=== PATIENT | female | born 1990 | race Caucasian/White ===

== ENCOUNTER 2023-12-10 16:05 | Emergency (ER) | payer BC, OTHER ==
[~2023-12-10] VITALS: Ht 157.5 cm; Wt 63.5 kg
[2023-12-10 16:46] VITALS: PULSE 74; RESP 15; TEMP 98.2
[2023-12-10] MEDS: SODIUM CHLORIDE 0.9% 1000ML 1,000 ML IV STA (17:37)
[2023-12-10] MEDS: KETOROLAC TROMETHAMINE 30 MG/ML VIAL IV STA ×2 (17:37→21:06)
[2023-12-10] MEDS ORDERED: IOPAMIDOL 370 MG/ML 100 ML INFUS..BTL INJ ONE (18:32)
[2023-12-10] MEDS: POTASSIUM CHLORIDE 20 MEQ TAB CR PO STA (19:04)
[2023-12-10] MEDS ORDERED: DICYCLOMINE HCL20 MG PO (21:37)
[2023-12-10] MEDS ORDERED: CIPRO500 MG PO (21:37)
[2023-12-10] MEDS ORDERED: ONDANSETRON ODT4 MG PO (21:38)
[2023-12-10] MEDS ORDERED: NAPROSYN500 MG PO (21:41)
[2023-12-10] MEDS: CIPROFLOXACIN 500 MG TAB PO SCH (21:47)
[2023-12-10] MEDS: DICYCLOMINE HCL 10 MG CAP PO ONE (21:47)
[2023-12-10 21:53] VITALS: BP 136/89; PULSE 74; RESP 18; TEMP 98; O2SAT 98
== END 2023-12-10 21:53 | disposition home or self-care (01) ==
LOC: FSED 16:10
DX: R10.30 Lower abdominal pain, unspecified (principal); K52.9 Noninfective gastroenteritis and colitis, unspecified; E87.6 Hypokalemia; E86.0 Dehydration; D64.9 Anemia, unspecified
CPT/HCPCS: 71046; 74177; 81003; 81025; 99284; J1885; J7030; Q9967